=== PATIENT | female | born 1995 | race Caucasian/White ===

== ENCOUNTER 2023-02-02 17:40 | Emergency (ER) | payer OTHER | END 2023-02-02 19:31 | LOC: FB.ED 17:40 | DX: O20.9 Hemorrhage in early pregnancy, unspecified (principal); Z86.16 Personal history of COVID-19; Z91.041 Radiographic dye allergy status; Z3A.17 17 weeks gestation of pregnancy | CPT/HCPCS: 36415; 84702; 99284 ==